=== PATIENT | female | born 1940 | race Caucasian/White ===

== ENCOUNTER 2016-05-17 12:39 | Observation (INO) | payer MEDICARE, OTHER ==
--- NOTE | ~2016-05-17 | OP ---
Record Of Operation [facility] [address] [place]. [address] NAME: JENSEN CONNOLLY : 38 STATUS : DIS Funmi PAT#: [id number] AGE: 75 ADM/REG DATE : 05/17/16 MR#: [id number] REPORT SERV DATE: 05/19/16 DICTATED BY: VIDYA GRIMM DATE: 05/19/16 REPORT STATUS : Draft TRANSCRIBED BY: MODL DATE: 05/19/16 DATE OF PROCEDURE: 05/19/2016 ELECTROPHYSIOLOGY PROCEDURE NOTE TYPE OF PROCEDURE: Direct current cardioversion. INDICATIONS: Atrial fibrillation. ANTIARRHYTHMIC AGENTS: Propafenone. ANTICOAGULANT: Pradaxa. DESCRIPTION OF PROCEDURE: The patient was taken to the cardiac short-stay unit in a fasting, nonsedated state. R2 pads were placed in anterior-posterior position. Following anesthesia with propofol, please see Anesthesia's note for further details, the patient underwent a direct current cardioversion. A 200 joules in a synchronized fashion which restored normal sinus rhythm. The patient awoke from anesthesia without complications. PLAN: Plan is to continue use of both for Propafenone for maintenance of sinus rhythm and Pradaxa for CVA prophylaxis. LESLIE/GOPI Vidya Grimm M.D. / [id number] CC: Adrian León M.D., Ph.D, F.A.CKEVIN JACKSON
--- NOTE | ~2016-05-17 | HP ---
History And Physical [id number] [place]. [address] NAME: JENSEN ELLIOTT : 38 STATUS : ADM Funmi PAT#: [id number] AGE: 75 ADM/REG DATE : 05/17/16 MR#: [id number] REPORT SERV DATE: 05/17/16 DICTATED BY: ADRIAN TA DATE: 05/17/16 REPORT STATUS : Draft TRANSCRIBED BY: GOPI DATE: 05/17/16 DATE OF ADMISSION: 05/17/2016 [facility] PHYSICIAN: Erik Nuno M.D. CHIEF COMPLAINT: Palpitations and elevated heart rate. HISTORY OF PRESENT ILLNESS: Ms Elliott is a 75-year-old woman with a history of atrial fibrillation and atrial flutter. She noticed that her heart rate has been elevated for the past several days with worsening dyspnea on exertion. She has had no specific chest pain or angina. She has had no lightheadedness or syncope, but due to her ongoing symptoms, she contacted the office and came in for evaluation. She was found to be in atrial fibrillation with an elevated heart rate and admitted. Heart rate was in the 116 to 140 range in the emergency room. She has had no fevers or chills. No nausea or vomiting. She has chronic edema. REVIEW OF SYSTEMS: The review of systems is as per the history of present illness. Chronic edema noted. 10 under systems negative. PAST MEDICAL HISTORY: 1. Atrial fibrillation and atrial flutter, status post ablation in 2008. 2. Chronic anticoagulation. 3. History of mild sick sinus syndrome. 4. Chronic cellulitis and hypertension. FAMILY HISTORY: Positive for coronary artery disease and cancer. SOCIAL HISTORY: No tobacco. No alcohol. ALLERGIES: ASPIRIN. HOME MEDICATIONS: Pradaxa 150 p.o. b.i.d., Claritin 10 daily, ofloxacin ophthalmic drops, prednisone drops, propafenone 225 p.o. t.i.d. PHYSICAL EXAMINATION: VITAL SIGNS: The patient is afebrile. Temperature is 98.1, heart rate 109, blood pressure 175/113. GENERAL: The patient is an elderly white female, no apparent distress. Lying comfortably in bed. Diltiazem drip running. HEENT: Conjunctivae are anicteric, no xanthelasma, lips without cyanosis. NECK: Supple. Jugular venous pressure is not elevated. LUNGS: Clear to auscultation. CARDIOVASCULAR: Irregular. Normal S1 and S2. ABDOMEN: Soft, nontender, nondistended, with normal bowel sounds. No hepatomegaly. EXTREMITIES: Chronic venous stasis changes. Chronic edema. History And Physical [address] [address] NAME: JENSEN ELLIOTT : 38 STATUS : ADM Funmi PAT#: [id number] AGE: 75 ADM/REG DATE : 05/17/16 MR#: [id number] REPORT SERV DATE: 05/17/16 DICTATED BY: ADRIAN TA DATE: 05/17/16 REPORT STATUS : Draft TRANSCRIBED BY: MODL DATE: 05/17/16 NEURO/PSYCH: Alert and oriented to person, place and time. No obvious neurologic deficits. Mood and affect normal. DATA: Creatinine is 0.97. Troponin negative at 0.02. INR 2.0. Hematocrit 40.6. IMPRESSION: 1. Recurrent atrial fibrillation with last episode in 2014. 2. History of atrial fibrillation and atrial flutter ablation. 3. Hypertension. 4. Chronic venous stasis. RECOMMENDATIONS: Ms Elliott presents with recurrent atrial fibrillation with mild dyspnea on exertion. She is under better rate control now with the Cardizem drip. I think we will see if she converts with a lower heart rate, if not, we will get her set up for a cardioversion on Thursday. Propafenone seems to be holding relatively well. It has been almost two years since her last episode. We will have to see if Dr. Nuno thinks about altering her antiarrhythmic medications. We will recheck labs in the morning to make sure she has had no changes. WO/MODL Adrian Ta M.D., Ph.D, F.A.C.C. / [id number] CC: Adrian Ta M.D., Ph.D, F.A.C.C.
[2016-05-17 12:22] LABS: BASOPHILS 0.2 %; BASOPHILS ABSOLUTE 0.01 10/3/uL (0.0-0.16); EOSINOPHILS 2.9 %; EOSINOPHILS ABSOLUTE 0.18 10/3/uL (0.0-0.53); HEMATOCRIT 40.6 % (36.0-48.0); IMMATURE GRANULOCYTES 0.2 %; IMMATURE GRANULOCYTES ABSOLUTE 0.01 10/3/uL (0.0-0.11); LYMPHOCYTES 18.1 %; LYMPHOCYTES ABSOLUTE 1.12 10/3/uL (0.67-4.30); MEAN CORPUSCULAR HEMOGLOB 32.1 pg (26.0-34.0); MEAN CORPUSCULAR VOLUME 93.1 fL (80-100); MEAN PLATELET VOLUME 10.9 fL (9.2-13.0); MONOCYTES 11.7 %; MONOCYTES ABSOLUTE 0.72 10/3/uL (0.21-1.20); NEUTROPHILS 66.9 %; NEUTROPHILS ABSOLUTE 4.14 10/3/uL (2.02-8.40); PLATELET COUNT 154 10/3/uL (150-400); RBC DISTRIBUTION WIDTH 13.2 % (12.0-16.0); RED CELL COUNT 4.36 10/6/uL (4.0-5.6); WHITE BLOOD CELLS 6.2 10/3/uL (4.5-10.5)
[2016-05-17 12:24] LABS: MANUAL DIFF NO %; MEAN CORPUS HGB CONC 34.5 g/dL (32.0-36.0)
[2016-05-17 12:29] LABS: PARTIAL THROMBO TIME 63.9 SEC (22.5-37.2)
[2016-05-17 12:30] LABS: PROTIME (NOT ORD) 22.3 SEC (12.0-14.5)
[2016-05-17 12:38] LABS: BUN (BLOOD UREA NITROGEN) 13 MG/DL (6-23); CALCIUM, SERUM 8.5 MG/DL (8.5-10.4); CHEST PAIN PROFILE TAT 0 Hrs 20 Mins; CHLORIDE, SERUM 109 MMOL/L (96-112); CO2 (CARBON DIOXIDE) 27 MMOL/L (24-34); CREATININE 0.97 MG/DL (0.55-1.02); GFR AFRICAN AMERICAN 66 ML/MIN (>=60); GFR NON AFRICAN AMERICAN 57 ML/MIN (>=60); GLUCOSE, SERUM 119 MG/DL (60-99); POTASSIUM, SERUM 4.2 MMOL/L (3.5-5.3); SODIUM, SERUM 144 MMOL/L (135-148); TROPONIN I <0.02 NG/ML (<0.05)
[~2016-05-17 12:39] MED LIST: C25 PO; COREG12 PO; COREG25 PO; COZ25 PO; DURICEF PO; IODOSORB TOP; LAN125 PO; LIOR10 PO; MULTIPLE VIT PO; PRADAXA150 MG PO; RYTHMOL225 MG PO; SANTYL250 MG/GM TOP; SEPTRA DS1 TAB PO; T PO; TYLENOL PM PO
[2016-05-17] MEDS ORDERED: CLARIT10 PO (13:47)
[2016-05-17] MEDS ORDERED: RYTHMOL225 MG PO (13:47)
[2016-05-17] MEDS ORDERED: PRADAXA150 MG PO (13:47)
[2016-05-17] MEDS ORDERED: OCUFLOX OPH (13:48)
[2016-05-17] MEDS ORDERED: PREDFORTE OPH (13:48)
[2016-05-18 04:15] LABS: BASOPHILS 0.2 %; BASOPHILS ABSOLUTE 0.01 10/3/uL (0.0-0.16); EOSINOPHILS ABSOLUTE 0.18 10/3/uL (0.0-0.53); HEMATOCRIT 41.2 % (36.0-48.0); HEMOGLOBIN 14.1 g/dL (12.0-16.0); IMMATURE GRANULOCYTES 0.2 %; IMMATURE GRANULOCYTES ABSOLUTE 0.01 10/3/uL (0.0-0.11); LYMPHOCYTES 25.7 %; LYMPHOCYTES ABSOLUTE 1.53 10/3/uL (0.67-4.30); MANUAL DIFF NO %; MEAN CORPUS HGB CONC 34.2 g/dL (32.0-36.0); MEAN CORPUSCULAR HEMOGLOB 31.8 pg (26.0-34.0); MEAN PLATELET VOLUME 10.7 fL (9.2-13.0); MONOCYTES 12.9 %; MONOCYTES ABSOLUTE 0.77 10/3/uL (0.21-1.20); NEUTROPHILS ABSOLUTE 3.45 10/3/uL (2.02-8.40); PLATELET COUNT 168 10/3/uL (150-400); RBC DISTRIBUTION WIDTH 13.1 % (12.0-16.0); RED CELL COUNT 4.43 10/6/uL (4.0-5.6)
[2016-05-18 04:29] LABS: BUN (BLOOD UREA NITROGEN) 15 MG/DL (6-23); CALCIUM, SERUM 8.5 MG/DL (8.5-10.4); CHLORIDE, SERUM 108 MMOL/L (96-112); CO2 (CARBON DIOXIDE) 25 MMOL/L (24-34); CREATININE 0.88 MG/DL (0.55-1.02); GFR AFRICAN AMERICAN 74 ML/MIN (>=60); GFR NON AFRICAN AMERICAN 64 ML/MIN (>=60); GLUCOSE, SERUM 111 MG/DL (60-99); SODIUM, SERUM 144 MMOL/L (135-148)
[2016-05-19 04:32] LABS: BASOPHILS 0.2 %; BASOPHILS ABSOLUTE 0.01 10/3/uL (0.0-0.16); EOSINOPHILS 2.9 %; EOSINOPHILS ABSOLUTE 0.17 10/3/uL (0.0-0.53); HEMOGLOBIN 13.8 g/dL (12.0-16.0); IMMATURE GRANULOCYTES 0.2 %; IMMATURE GRANULOCYTES ABSOLUTE 0.01 10/3/uL (0.0-0.11); LYMPHOCYTES 24.3 %; LYMPHOCYTES ABSOLUTE 1.43 10/3/uL (0.67-4.30); MEAN CORPUS HGB CONC 34.5 g/dL (32.0-36.0); MEAN CORPUSCULAR HEMOGLOB 32.2 pg (26.0-34.0); MEAN CORPUSCULAR VOLUME 93.2 fL (80-100); MEAN PLATELET VOLUME 10.6 fL (9.2-13.0); MONOCYTES 13.3 %; MONOCYTES ABSOLUTE 0.78 10/3/uL (0.21-1.20); NEUTROPHILS 59.1 %; NEUTROPHILS ABSOLUTE 3.48 10/3/uL (2.02-8.40); PLATELET COUNT 151 10/3/uL (150-400); RBC DISTRIBUTION WIDTH 13.4 % (12.0-16.0); RED CELL COUNT 4.29 10/6/uL (4.0-5.6); WHITE BLOOD CELLS 5.9 10/3/uL (4.5-10.5)
[2016-05-19 04:34] LABS: MANUAL DIFF NO %
[2016-05-19 04:52] LABS: BUN (BLOOD UREA NITROGEN) 17 MG/DL (6-23); CALCIUM, SERUM 8.6 MG/DL (8.5-10.4); CHLORIDE, SERUM 109 MMOL/L (96-112); CO2 (CARBON DIOXIDE) 25 MMOL/L (24-34); CREATININE 0.92 MG/DL (0.55-1.02); GFR AFRICAN AMERICAN 70 ML/MIN (>=60); GFR NON AFRICAN AMERICAN 60 ML/MIN (>=60); GLUCOSE, SERUM 126 MG/DL (60-99); POTASSIUM, SERUM 4.4 MMOL/L (3.5-5.3); SODIUM, SERUM 143 MMOL/L (135-148)
[2016-08-25] MEDS ORDERED: PRADAXA150 MG PO (04:54)
[2016-08-25] MEDS ORDERED: RYTHMOL225 MG PO (04:54)
[2016-08-27] MEDS ORDERED: T PO (10:29)
[2016-08-27] MEDS ORDERED: ULTRAM50 PO (10:31)
== END 2016-05-19 14:50 | disposition home or self-care (01) ==
LOC: ER 12:39 → CDU1 14:44 → CDU2 15:00
PROVIDERS: Emergency Medicine; Internal Medicine Cardiovascular Disease
DX: I48.91 Unspecified atrial fibrillation (principal); I48.92 Unspecified atrial flutter; I10 Essential (primary) hypertension; I87.8 Other specified disorders of veins; E11.9 Type 2 diabetes mellitus without complications; Z88.8 Allergy status to other drugs, medicaments and biological substances; Z79.01 Long term (current) use of anticoagulants; Z79.899 Other long term (current) drug therapy
CPT/HCPCS: 71010; 80048; 82962; 83735; 84484; 85025; 85610; 85730; 92960; 93005; 96374; 96376; 99285; A9270-GY; G0378

== ENCOUNTER 2016-05-20 23:36 | Emergency (ER) | payer MEDICARE, OTHER ==
[2016-05-20 22:36] LABS: BASOPHILS 0.1 %; BASOPHILS ABSOLUTE 0.01 10/3/uL (0.0-0.16); EOSINOPHILS 0.3 %; EOSINOPHILS ABSOLUTE 0.03 10/3/uL (0.0-0.53); HEMATOCRIT 38.9 % (36.0-48.0); HEMOGLOBIN 13.7 g/dL (12.0-16.0); IMMATURE GRANULOCYTES 0.2 %; IMMATURE GRANULOCYTES ABSOLUTE 0.02 10/3/uL (0.0-0.11); LYMPHOCYTES 7.4 %; LYMPHOCYTES ABSOLUTE 0.86 10/3/uL (0.67-4.30); MEAN CORPUS HGB CONC 35.2 g/dL (32.0-36.0); MEAN CORPUSCULAR HEMOGLOB 32.6 pg (26.0-34.0); MEAN CORPUSCULAR VOLUME 92.6 fL (80-100); MEAN PLATELET VOLUME 10.5 fL (9.2-13.0); MONOCYTES 11.2 %; NEUTROPHILS 80.8 %; NEUTROPHILS ABSOLUTE 9.34 10/3/uL (2.02-8.40); PLATELET COUNT 147 10/3/uL (150-400); RBC DISTRIBUTION WIDTH 13.1 % (12.0-16.0)
[2016-05-20 22:37] LABS: MANUAL DIFF NO %; WHITE BLOOD CELLS 11.6 10/3/uL (4.5-10.5)
[2016-05-20 22:49] LABS: INTERNATIONAL NORMAL RATI 3.1 UNITS (-)
[2016-05-20 22:50] LABS: PARTIAL THROMBO TIME 91.5 SEC (22.5-37.2)
[2016-05-20 22:51] LABS: BUN (BLOOD UREA NITROGEN) 19 MG/DL (6-23); CALCIUM, SERUM 8.7 MG/DL (8.5-10.4); CHEST PAIN PROFILE TAT 0 Hrs 20 Mins; CHLORIDE, SERUM 105 MMOL/L (96-112); CO2 (CARBON DIOXIDE) 25 MMOL/L (24-34); CREATININE 0.99 MG/DL (0.55-1.02); GFR AFRICAN AMERICAN 64 ML/MIN (>=60); GFR NON AFRICAN AMERICAN 55 ML/MIN (>=60); GLUCOSE, SERUM 133 MG/DL (60-99); POTASSIUM, SERUM 4.6 MMOL/L (3.5-5.3); SODIUM, SERUM 139 MMOL/L (135-148); TROPONIN I <0.02 NG/ML (<0.05)
[~2016-05-20 23:36] MED LIST changes: +CLARIT10 PO; +OCUFLOX OPH; +PREDFORTE OPH
[2016-05-21 01:13] LABS: ASCORBIC ACID (UR NOT ORDER) NEG (NEG); BILIRUBIN, URINE NEGATIVE (NEG); ER URINALYSIS TAT 0 Hrs 00 Mins; KETONE, URINE NEGATIVE (NEG); LEUKOCYTE ESTERASE(NOT OR NEG (NEG); NITRITE (URINE) POS (NEG); WBC (NOT ORDERED) (RFLEX) 2 (0-5)
[2016-08-25] MEDS ORDERED: PRADAXA150 MG PO (04:54)
[2016-08-25] MEDS ORDERED: RYTHMOL225 MG PO (04:54)
[2016-08-27] MEDS ORDERED: T PO (10:29)
[2016-08-27] MEDS ORDERED: ULTRAM50 PO (10:31)
== END 2016-05-21 01:58 | disposition home or self-care (01) ==
LOC: ER 23:36
PROVIDERS: Emergency Medicine; Nurse Practitioner Acute Care
DX: R00.2 Palpitations (principal); I10 Essential (primary) hypertension; I48.91 Unspecified atrial fibrillation; Z88.6 Allergy status to analgesic agent; Z79.899 Other long term (current) drug therapy
CPT/HCPCS: 71010; 80048; 81001; 83735; 84484; 85025; 85610; 85730; 93005; 99285